=== PATIENT | female | born 1955 | race African-American/Black ===

== ENCOUNTER 2019-05-03 00:32 | Inpatient (IN) | payer MEDICARE ==
[~2019-05-03] VITALS: Ht 170.2 cm; Wt 80.5 kg
[2019-05-03] VITALS (20 sets, daily range): BP systolic 121–156; BP diastolic 66–130; Ht 170.2 cm; Wt 80.5 kg
[2019-05-03] MEDS ORDERED: BUMEX2 MG PO (00:37)
[2019-05-03] MEDS ORDERED: ALBUTEROL SULF8.5 GM INH (00:37)
[2019-05-03] MEDS ORDERED: CARDURA4 MG PO (00:38)
[2019-05-03] MEDS ORDERED: PHOSLO667 MG PO (00:38)
[2019-05-03] MEDS ORDERED: ROCALTROL0.25 MCG PO (00:38)
[2019-05-03] MEDS ORDERED: NORVASC10 MG (00:39)
[2019-05-03] MEDS ORDERED: BAYER CHEWABLE81 MG PO (00:39)
[2019-05-03] MEDS ORDERED: FERROUS SULFAT325 MG PO (00:39)
[2019-05-03] MEDS ORDERED: HYDRALAZINE HCL25 MG PO (00:39)
[2019-05-03 01:26] LABS: BASOPHILS 0.2 % (0-2); EOSINOPHILS 0.3 % (0-7); HEMATOCRIT 29.5 % (36.0-48.0); HEMOGLOBIN 9.9 g/dL (12-16); IMMATURE GRANULOCYTES 0.4 % (0-5); LYMPHOCYTES 10.9 % (15-50); MCH 30.4 pg (26.0-34.0); MCHC 33.6 g/dL (31.0-37.0); MCV 90.5 fL (80.0-100.0); MEAN PLATELET VOLUME 11.3 fL (7.4-10.4); MONOCYTES 9.4 % (2-11); NEUTROPHILS 78.8 % (40-80); PLATELET COUNT 200 10x3/uL (130-400); RBC 3.26 10x6/uL (4.00-5.40); RDW 12.3 % (11.5-14.5); WBC 11.3 10x3/uL (4.8-10.8)
[2019-05-03 01:54] LABS: APTT 32.7 SECONDS (22.8-39.4); INR 1.09 (0.85-1.17); PROTIME 13.6 SECONDS (11.6-15.0)
[2019-05-03 02:10] LABS: ALBUMIN 2.8 g/dL (3.4-5.0); ALKALINE PHOSPHATASE 105 U/L (46-116); ALT (SGPT) 7 U/L (10-68); BILIRUBIN - TOTAL 0.39 mg/dL (0.2-1.3); CALC OSMOLALITY 308 mosm/kg (275-300); CARBON DIOXIDE 23.3 mmol/L (21.0-32.0); CHLORIDE - SERUM 93 mmol/L (98-107); CKMB 1.5 U/L (0.0-3.6); CREATINE KINASE 66 UL (21-215); CREATININE - SERUM 14.4 mg/dL (0.6-1.3); GLUCOSE 162 mg/dL (74-106); PROTEIN - SERUM 8.5 g/dL (6.4-8.2); SODIUM 132 mmol/L (136-145); UREA NITROGEN 125 mg/dL (7-18); eGFR NON AFRICAN AMERICAN 3 mL/min (90-120)
[2019-05-03 02:16] LABS: APPEARANCE HAZY (CLEAR); BILIRUBIN NEGATIVE (NEGATIVE); COLOR YELLOW (YELLOW); EPITHELIAL CELLS RARE /hpf (0-5); GLUCOSE NEGATIVE (NEGATIVE); KETONE NEGATIVE (NEGATIVE); NITRITE NEGATIVE (NEGATIVE); PROTEIN 2+ mg/dL (NEGATIVE); SPECIFIC GRAVITY 1.015 (1.005-1.020); UROBILINOGEN NORMAL (NORMAL)
[2019-05-03 02:17] LABS: BACTERIA MANY /hpf (NONE SEEN)
[2019-05-03 02:19] LABS: CALCIUM 12.4 mg/dL (8.5-10.1); POTASSIUM - SERUM 6.7 mmol/L (3.5-5.1); TROPONIN-I < 0.017 ng/mL (0.000-0.060)
--- NOTE | 2019-05-03 02:56 | NUR ---
PT ARRIVED PER EMS WITH C/O OF URINARY RETENTION, HEMATURIA, NOT EATING, OR DRINKING, INCREASED GENERALIZED WEAKNESS, FAMILY AT BEDSIDE.
--- NOTE | 2019-05-03 02:58 | NUR ---
PATIENT TO CT VIA STRETCHER PER SYNCHRO ASSEMBLER.
--- NOTE | 2019-05-03 03:15 | NUR ---
ROCEPHIN INFUSION COMPLETE AT THIS TIME.
--- NOTE | 2019-05-03 04:15 | NUR ---
PT REC'D TO ROOM 2314 VIA STRETCHER FROM ER, PT TRANSFERRED OVER TO BED, ALL MONITORS ESTABLISHED, PT APPEARS WEAK, STATES " THEY MADE ME COME TO THE HOSPITAL BECAUSE I WAS JUST LAYING IN THE BED ALL THE TIME", LEFT HAND PIV WITH ROCPEHIN INFUSING, PT TREY, ORIENTED X 4, EXTRA BLANKET AND THERMOSTAT ADJUSTED FOR PT COMFORT, PT DENIES FURTHER NEEDS, CALL LIGHT IN REACH.
--- NOTE | 2019-05-03 04:45 | NUR ---
AT BS WITH HOME MEDICATIONS, MEDICATIONS VERIFIED, AND UPDATE PROVIDED.
--- NOTE | 2019-05-03 05:15 | NUR ---
SON AT BS, UPDATE GIVEN AND QUESTIONS ANSWERED.
--- NOTE | 2019-05-03 06:15 | NUR ---
PT RESTING IN BED, EYES CLOSED, RESP EVEN AND UNLABORED, VSS, WILL MONITOR CLOSELY FOR CHANGES, CALL LIGHT IN REACH.
--- NOTE | 2019-05-03 07:30 | NUR ---
REC'ED RERPORT FROM OUT GOING RN - PT RESTING SUPUINE IN BED - RESP REG RATE AND RHYTHM - CPOC
--- NOTE | 2019-05-03 08:00 | NUR ---
ASSESSMENST COMPLETEE - PT SLIGHTLY CONFUSED - B/P WITHN 1128/73 (89) - CPOC
--- NOTE | 2019-05-03 09:18 | NUR ---
SPOKE TO SON, DOCBASIM TO SPEAK TO SON - PASSWORD ESTABLISHED (CRYSTAL BEE) PUT ON FACE SHEET - CPOC
--- NOTE | 2019-05-03 09:30 | NUR ---
MEDICAITONS GIVEN - PT RESTING WITH EYES CLOSED - CONTINUES TO BE SLIGHTLY CONFUSED - CPOC
--- NOTE | 2019-05-03 10:13 | NUR ---
DR. GALAN AT BEDSIDE - REVIEWED LABS - POSSIBLE TRIALYSIS FOR DIALYSIS - AWAITING STAT BMP -
[2019-05-03 11:42] LABS: INR 1.11 (0.85-1.17); PROTIME 13.8 SECONDS (11.6-15.0)
[2019-05-03 12:35] LABS: ALBUMIN 2.5 g/dL (3.4-5.0); ANION GAP 17.3 mmol/L (8-16); BILIRUBIN - TOTAL 0.34 mg/dL (0.2-1.3); CARBON DIOXIDE 26.8 mmol/L (21.0-32.0); CREATININE - SERUM 13.8 mg/dL (0.6-1.3); PROTEIN - SERUM 6.9 g/dL (6.4-8.2)
[2019-05-03 12:36] LABS: POTASSIUM - SERUM 6.1 mmol/L (3.5-5.1)
--- NOTE | 2019-05-03 12:40 | NUR ---
PAGED DR. GALAN - R/T POTASSIUM LAB AT 6.1 (DOWN FROM 6.7) DISCUSSED PLAN OF CARE - ORDER TO CONSULT DR. HUBBARD FOR TRIALYSIS PLACEMENT TODAY - AND - [facility] FOR 18:[address] GALAN WITH LAB RESUTLS. CPOC
--- NOTE | 2019-05-03 12:50 | NUR ---
PAGED DR. MUHAMMAD - INFORMED OF ABOVE CONSULT - INSTRUCTED TO OBTAIN ULTRASOUND FROM ER WITH ALL SUPPLIES - COMPLETED AWAITING
--- NOTE | 2019-05-03 13:20 | NUR ---
SPOKE TO PATIENT WITH SON (MADELINE) AT BEDSIDE TO DISCUSS TRIALYSIS PROCEDURE - PATIENT STATED SHE DOES NOT WANT TO BE IN PAIN, EDUCATED PATIENT R/T HOW PROCEDURE IS DONE. SON SAID HE WOULD NOTIFY HIS FATTHER TO BE PRESENT FOR PROCEDURE.
--- NOTE | 2019-05-03 13:32 | NUR ---
CALLED SPOUSE TO DISCUSS TRIALYSIS PROCEDURE - SPOUSE AGEED TO PLAN OF CARE - 2ND RN WITNESS AVILABLE FOR CONFIRMATION. sPOUSE IS DRIVING IN TO BE PRESENT IF POSSIBLE (IN WAITING ROOM.) CPOC
--- NOTE | 2019-05-03 14:00 | NUR ---
SPOUSE AT BEDSIDE - ANSWERED ALL QUESITONS TO FAMILY'S SATISFACTION - AWATING MD FOR PROCEDURE
--- NOTE | 2019-05-03 14:25 | NUR ---
GAVE MEDICATION SEE MAR - CPOC
--- NOTE | 2019-05-03 15:30 | NUR ---
DR. HUBBARD CALLED TO STATE HE WILL 'BE HERE NEXT.' PER COST ACCOUNTANT
--- NOTE | 2019-05-03 16:07 | NUR ---
CALLED PHARMACY TO ASK FOR LIDOCAINE TO BE AVAIABLE FOR UPCOMING PROCEDURE - CPOC
--- NOTE | 2019-05-03 16:08 | NUR ---
VISITORS AT BEDSIDE - DINNER TRAY GIVEN TO PATIENT - CPOC
--- NOTE | 2019-05-03 16:35 | NUR ---
TIME OUT CALLED PRE PROCEDURE - PATIENT TOLERATED PROCEDURE WELL. - COVERED WITH CENTRAL LINE DRESSING, BLUE CAP, ANS SWAB CAP PLACED - STAT-X-RAY ORDERED FOR CLEARANCE - CPOC
--- NOTE | 2019-05-03 17:15 | NUR ---
DR. GALAN CALLED TO DISCUSS PLAN OF CARE - INFORMED OF PATIENT C/O OF LOWER ABD PAIN- ODERS RECIEVED FOR PROTONIX, LABS (AMALAYSE, LIPASE), REPEAT MIRALAX TO TREAT CONSTIPATION. SPOUSE AND FAMILY AT BEDSIDE VISITING - WITH PATIENT - CPOC
--- NOTE | 2019-05-03 17:30 | NUR ---
COMPOSITE ENGINEER AND X-RAY TECH AT BEDSIDE FOR TREATMENT - AWAITING RESULTS
[2019-05-03 18:15] LABS: ANION GAP 18.5 mmol/L (8-16); CARBON DIOXIDE 25.2 mmol/L (21.0-32.0); CREATININE - SERUM 13.6 mg/dL (0.6-1.3); POTASSIUM - SERUM 5.7 mmol/L (3.5-5.1)
--- NOTE | 2019-05-03 18:18 | NUR ---
CALLED RUBBER GOODS REPAIRER TO ASK FOR PROTONIX IV PUSH TO BE PULLED FROM [facility]
--- NOTE | 2019-05-03 18:24 | NUR ---
PAGED DR GALAN FOR LAB RESUTLS POTASSIUM: 5.7, BUN: 124, CREAT: 13.6, AMYLASE: 43, LIPASE: 445 AWAITING CALL BACK
--- NOTE | 2019-05-03 18:40 | NUR ---
DR GALAN - CHANGED NS TO 125ML/HR - READ RADIOLOGY REPORT - APPROVED TO USE IJ NURSES VADIM - WILL MEET WITH FAMILY AT 11:00 TODAY TO REVIEW PLAN OF CARE
--- NOTE | 2019-05-03 21:00 | NUR ---
1900 PT ASSESSMENT COMPLETED AT THIS TIME. PT RESTING WITH EYES CLOSED UPON ARRIVAL INTO ROOM. RESP EVEN NON LABORED. PT C/O ABD AND BACK PAIN. PT STATES THAT IT DOES FEEL BETTER THAN EARLIER. NO OTHER COMPLAINTS VOICED. WILL CON TO MONITOR FOR CHANGES
--- NOTE | 2019-05-03 21:02 | NUR ---
PT GIVEN MEDICINE AT THIS TIME, NO CHANGES NOTED. WILL MONITOR FOR CHANGES IN PATIENT COND.
--- NOTE | 2019-05-03 23:24 | NUR ---
PTM REASSESSMENT COMPLETED AT THIS TIME. NO CHANGES NOTED, WILL CONT. TO MONITOR
[2019-05-04] VITALS (24 sets, daily range): BP systolic 101–165; BP diastolic 57–113
--- NOTE | 2019-05-04 03:21 | NUR ---
0100 PT RESTING WITH EYES CLOSED RESP EVEN NON LABORED. NO DISTRESS NOTED. WILL CONTINUE TO MONITOR. 0300 PT REASSESSMENT COMPLETED ATY THIS TIME TIME, NO CHANGES SEEN, WILL CONT. TO MONITOR
--- NOTE | 2019-05-04 04:58 | NUR ---
PT ADVISED THAT HER SIDE AND ABD WAS HURTING MORE, PT RATED IT A 10/10 ON THE PAIN SCALE
[2019-05-04 05:19] LABS: BASOPHILS 0.1 % (0-2); EOSINOPHILS 3.3 % (0-7); HEMATOCRIT 24.2 % (36.0-48.0); IMMATURE GRANULOCYTES 0.4 % (0-5); MCH 30.2 pg (26.0-34.0); MCHC 33.1 g/dL (31.0-37.0); MCV 91.3 fL (80.0-100.0); MEAN PLATELET VOLUME 10.7 fL (7.4-10.4); MONOCYTES 16.5 % (2-11); NEUTROPHILS 65.7 % (40-80); PLATELET COUNT 176 10x3/uL (130-400); RBC 2.65 10x6/uL (4.00-5.40); RDW 12.4 % (11.5-14.5)
[2019-05-04 05:20] LABS: WBC 7.7 10x3/uL (4.8-10.8)
[2019-05-04 05:34] LABS: ALBUMIN 2.3 g/dL (3.4-5.0); ANION GAP 17.5 mmol/L (8-16); BILIRUBIN - TOTAL 0.3 mg/dL (0.2-1.3); CALCIUM 10.2 mg/dL (8.5-10.1); CARBON DIOXIDE 25.1 mmol/L (21.0-32.0); CREATININE - SERUM 12.7 mg/dL (0.6-1.3); POTASSIUM - SERUM 5.6 mmol/L (3.5-5.1)
--- NOTE | 2019-05-04 06:04 | NUR ---
[address] GALAN CONCERNING PATIENTS INCREASED PAIN. NEW ORDERS GIVEN
--- NOTE | 2019-05-04 07:00 | NUR ---
SHIFT ASSESSMENT COMPLETED. PT CARE ASSUMED. MONITORS ON AND WORKING, VITALS STABLE, PT AWAKE AND ALERT, COMPLAINING OF LEFT HIP PAIN. ICE PACK PLACED ON PTS LEFT HIP. CALL LIGHT WITHIN REACH, SEE FLOW SHEET FOR FURTHER DETIALS. WILL CONTINUE TO OBSERVE.
--- NOTE | 2019-05-04 09:00 | NUR ---
FAMILY AT BEDSIDE, UPDATE PROVIDED, MONITORS ON AND WORKING, VITALS STABLE, PRINT SUPPORT SPECIALIST NOTIFIED OF VAGINAL BLEEDING AND ABD PAIN- DR GALAN AT BEDSIDE, DISCUSSING PLAN OF CARE WITH PT AND FAMILY.
--- NOTE | 2019-05-04 09:40 | NUR ---
SPOKE WITH DR CHUNG REGARDING CONSULT, HE STATED HE WOULD BE BY TO SEE PT IN A LITTLE BIT.
--- NOTE | 2019-05-04 11:00 | NUR ---
NO CHANGES, SEE FLOW SHEET FOR FURTHER DETAILS, CALL LIGHT WITHIN REACH, WILL CONTINUE TO OBSERVE.
--- NOTE | 2019-05-04 13:00 | NUR ---
CRAB BUTCHER AT BEDSIDE TALKING WITH PT AND FAMILY. MONITORS ON AND WORKING, VITALS STABLE, WILL CONTINUE TO OBSERVE.
--- NOTE | 2019-05-04 15:00 | NUR ---
AT BEDSIDE. PT RESTING, HD NURSE AT BEDSIDE, MONITORS ON AND WORKING, VITALS STABLE. PT TOLERATING WELL. CALL LIGHT WITHIN REACH, WILL CONTINUE TO OBSERVE.
--- NOTE | 2019-05-04 15:49 | OP ---
PATIENT NAME: GABBY MAYO MEDICAL RECORD: [id number] :51 LOCATION:[facility] D.2314 ADMISSION DATE:05/03/19 SURGEON: HOMA HUBBARD MD DATE OF OPERATION: 05/03/2019 PREOPERATIVE DIAGNOSIS: Acute renal failure requiring hemodialysis. POSTOPERATIVE DIAGNOSIS: Acute renal failure requiring hemodialysis. PROCEDURE: Insertion of right internal jugular Trialysis catheter (non-tunneled, non-cuffed hemodialysis catheter). SURGEON: Homa Hubbard MD BISQUE FINISHER: None. BLOOD LOSS: Minimal. ANESTHESIA: Local. COMPLICATIONS: None. The risks, possible complications and alternatives to the procedure were explained to the patient. She elects to proceed. The entire procedure was performed in the presence of a female nurse. OPERATIVE COURSE: The patient was positioned in the Trendelenburg position. The right neck was sterilely prepped and draped. A local anesthetic was used to infiltrate the skin and subcutaneous tissues at the base of right neck. Right internal jugular vein was percutaneously accessed in an antegrade fashion. A guidewire passed easily. A small skin deidra was accomplished. A vessel dilator was used to dilate a subcutaneous tract. A short Trialysis catheter was inserted to the hub. It was sutured in place times 3. All lumens flushed easily and aspirated dark, nonpulsatile blood. A stat portable chest x-ray is pending. TRANSINT:[id number] Voice Confirmation ID: [id number] DOCUMENT ID: [id number] HOMA HUBBARD MD at 1549 CC: VLADIMIR GALAN MD [id number] DICTATION DATE: 05/03/191716 STRUCTURAL STEEL DETAILER: 05/03/19 2217 ADM IN [place] [id number] [place] [id number]
--- NOTE | 2019-05-04 16:30 | NUR ---
PT TWITCHING MORE, CHANGE IN STATUS, DIE REPAIRER TRIMMER DIES NOTIFIED, STAT BMP AND CT OF HEAD ORDERED.
[2019-05-04 17:40] LABS: ANION GAP 15.7 mmol/L (8-16); CALCIUM 9.3 mg/dL (8.5-10.1)
[2019-05-04 17:46] LABS: CREATININE - SERUM 6.4 mg/dL (0.6-1.3); POTASSIUM - SERUM 4.7 mmol/L (3.5-5.1)
--- NOTE | 2019-05-04 18:00 | NUR ---
CT OF HEAD COMPLETED. PT TAKEN TO ER AFTER CT TO RULE OUT STROKE, PT BACK IN ICU, MONITORS ON AND WORKING, VITALS STABLE, SPOKE WITH LABORATORY CLERK AGAIN, FAMILY AT BEDSIDE, CONTINUED TO BE UPDATED AND REMAINS AT BEDSIDE AT THIS TIME.
--- NOTE | 2019-05-04 20:16 | NUR ---
1900 PT ASSESSMENT COMPLETED AT THIS TIME, PT AWAKE AND ALERT TALKING WITH FAMILY. PT STATES THAT HER ABD IS STILL HURTING. NO OTHER COMPLAINTS AT THIS TIME. PT ADVISED THAT THE NURSE WOULD CHECK THE ORDERS FOR MEDICINE FOR PAIN. 1951 PT GIVEN BUPERNEX IV FOR PAIN CONTROL 2010 FAMILY ADVISED THAT THE PATIENT WAS FEELING HOT, AND NAUSEATED. PT WAS GIVEN AN EMESIS BAG IN CASE OF VOMITING. NO ORDERS NOTED FOR NAUSEA MEDICINE, ON-CALL WAS PAGED.
--- NOTE | 2019-05-04 20:55 | NUR ---
2024 DR GALAN CALLED BACK WITH NEW ORDERS, WAS UPDATED ON PATIENTS COND.
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
[2019-05-05] VITALS (29 sets, daily range): BP systolic 113–181; BP diastolic 63–128
--- NOTE | 2019-05-05 02:04 | NUR ---
2200 PT RESTING WITH EYES CLOSED, PT WILL AROUSE TO NAME. RESP EVEN NON LABORED AT THSI TIME, FAMILY AT THE BEDSIDE. 2300 PT REASSESSMENT COMPLETED AT THIS TIME. PT AWAKES TO NAME AND DENIES ANY COMPLAINTS WHEN ASKED. PT THE GOES BACK TO SLEEP. RESP EVEN NON LABORED AT THIS TIME, WILL CONT. TO MON. 0100 PT AWOKE TO NAME AND WHEN ASKED IF SHE WAS DOING OK THE PATIENT STATES THAT SHE DOING FINE. PT DENIES PAIN OR DISCOMFORT AT THIS TIME. RESP EVEN NON LABORED, WILL CONT. TO MONITOR
--- NOTE | 2019-05-05 04:15 | NUR ---
0300 PT AWAKE AT THIS TIME, REASSESSMENT COMPLETED, NO DISTRESS NOTED 0340 PT WAS GIVEN HCG BATH AT THIS TIME. AND COMPLETE LINEN CHANGED
--- NOTE | 2019-05-05 05:14 | NUR ---
PT RESTING WITH EYES CLOSED AT THSI TIME, RESP EVEN NON LABORED. WILL CONT TO MONITOR
[2019-05-05 05:17] LABS: BASOPHILS 0.2 % (0-2); EOSINOPHILS 1.9 % (0-7); HEMATOCRIT 24.9 % (36.0-48.0); HEMOGLOBIN 8.2 g/dL (12-16); IMMATURE GRANULOCYTES 0.5 % (0-5); LYMPHOCYTES 13.4 % (15-50); MCH 30.4 pg (26.0-34.0); MCHC 32.9 g/dL (31.0-37.0); MCV 92.2 fL (80.0-100.0); MEAN PLATELET VOLUME 10.1 fL (7.4-10.4); MONOCYTES 13.8 % (2-11); NEUTROPHILS 70.2 % (40-80); PLATELET COUNT 178 10x3/uL (130-400); RDW 12.3 % (11.5-14.5); WBC 8.1 10x3/uL (4.8-10.8)
[2019-05-05 05:45] LABS: ANION GAP 17.2 mmol/L (8-16); CARBON DIOXIDE 23.7 mmol/L (21.0-32.0); CREATININE - SERUM 6.9 mg/dL (0.6-1.3); PHOSPHOROUS 5.4 mg/dL (2.5-4.9); POTASSIUM - SERUM 4.9 mmol/L (3.5-5.1)
--- NOTE | 2019-05-05 07:09 | NUR ---
PT TAKEN TO SURGERY BY OR CREW
--- NOTE | 2019-05-05 07:15 | NUR ---
REPORT RECEIVED. PT CURRENTLY IN OR. PT HAS RIGHT IJ TRIALYSIS CATH. SHE HAS A MAY. ON ROOM AIR. WILL REASSESS WHEN PT RETURNS FROM SURGERY.
--- NOTE | 2019-05-05 09:32 | NUR ---
DR ALBERT IN WITH PT AT THIS TIME. ORDERED SOME LAB WORK. WILL CONTINUE TO MONITOR.
--- NOTE | 2019-05-05 09:35 | NUR ---
CALLED DR HUBBARD ABOUT PT HAVING ABDOMINAL PAIN AND DR GALAN WANTING HIM TO TAKE A LOOK. HE STATED THAT DR DONAHUE LOOKED AT HER WHEN HE WAS IN THE UNIT AND THAT HE WOULD PUT A NOTE IN. 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 WILL FOLLOW UP WITH DR SHEIKH.
--- NOTE | 2019-05-05 11:30 | NUR ---
PT RESTING QUIETLY. LETHARGIC. MUMBLING RESPONSES TO QUESTIONS. ABD TENDER. BOWEL SOUNDS HYPOACTIVE. HELPED PT REPOSITION IN BED. VSS. WILL CONTINUE TO MONITOR.
--- NOTE | 2019-05-05 12:15 | NUR ---
Nutrition follow-up: Clear liquid low K diet Dialysis started Labs reviewed Wt: 178# Pt not meeting estimated energy needs at this time Will need to consider nutrition support if diet unable to advance within 24-48 hours RDN following.
--- NOTE | 2019-05-05 12:15 | NUR ---
DR CHUNG TO UNIT. WANTED TO ROUND ON PT AND SPEAK WITH FAMILY. FAMILY NOT IN UNIT AND NOT IN WAITING ROOM. DR CHUNG SAID HE WAS GOING TO DO ANOTHER PROCEDURE THEN HE WOULD COME BACK TO THE UNIT TO TRY TO CATCH THE FAMILY.
--- NOTE | 2019-05-05 14:38 | NUR ---
SEVERAL FAMILY MEMBERS HAVE GOTTEN HERE ASKING WHEN DR CHUNG WOULD BE BACK AROUND. ONE SON SAT AT NURSE'S STATION WATCHING TO MAKE SURE I MADE PHONE CALLS TO FIND OUT. SPOKE WITH NURSE IN THE ROOM (WHERE DR CHUGN IS CURRENTLY) AND HE SAID THAT IT WOULD BE WITHIN THE NEXT HOUR THAT HE WOULD BE UP HERE TO SPEAK WITH THE FAMILY. RELAYED MESSAGE TO FAMILY. WILL CONTINUE TO MONITOR.
--- NOTE | 2019-05-05 15:15 | NUR ---
DR CHUNG IN WITH PT AND FAMILY. UPDATED. NO NEW ORDERS AT THIS TIME. STATED IF PT BLEEDS EXCESSIVELY FROM VAGINA TO CALL HIM.
--- NOTE | 2019-05-05 17:03 | NUR ---
UPDATED PT'S SON AND DAUGHTER IN LAW. VERBALIZED UNDERSTANDING. OTHER FAMILY MEMBERS IN WITH PT AT THIS TIME. DENIES PAIN WHILE LAYING STILL. WILL CONTINUE TO MONITOR.
[2019-05-06] VITALS (22 sets, daily range): BP systolic 105–177; BP diastolic 67–118
[2019-05-06 06:21] LABS: ANION GAP 15.1 mmol/L (8-16); CALCIUM 8.9 mg/dL (8.5-10.1); CARBON DIOXIDE 24.4 mmol/L (21.0-32.0); CREATININE - SERUM 7.2 mg/dL (0.6-1.3); PHOSPHOROUS 4.9 mg/dL (2.5-4.9); POTASSIUM - SERUM 4.5 mmol/L (3.5-5.1)
[2019-05-06 06:49] LABS: BASOPHILS 0.1 % (0-2); EOSINOPHILS 4.1 % (0-7); HEMOGLOBIN 7.9 g/dL (12-16); IMMATURE GRANULOCYTES 0.8 % (0-5); LYMPHOCYTES 15.8 % (15-50); MCHC 32.9 g/dL (31.0-37.0); MCV 91.3 fL (80.0-100.0); MONOCYTES 17.5 % (2-11); NEUTROPHILS 61.7 % (40-80); PLATELET COUNT 192 10x3/uL (130-400); RBC 2.63 10x6/uL (4.00-5.40); RDW 12.3 % (11.5-14.5); WBC 7.5 10x3/uL (4.8-10.8)
--- NOTE | 2019-05-06 07:15 | NUR ---
REPORT RECEIVED. PT HAS A RIGHT IJ TRIALYSIS WITH NS INFUSING AT 30ML/HR. PT HAS A MAY. ON HER RIGHT SIDE. HEAD TO TOE ASSESSMENT COMPLETED. VSS. WILL CONTINUE TO MONITOR.
--- NOTE | 2019-05-06 07:32 | NUR ---
1900 PT ASSESSMENT COMPLETED AT THIS TIME, PT TAKING WITH FAMILY AT BEDSIDE, NO DISTRESS NOTED. 2100 PT GIVEN MEDS AT THIS TIME. PT LUIS. WELL, NO DISTRESS NOTED. 2300 PT REASSESSMENT COMPLETED AT THIS TIME, NO CHANGES NOTED. 0100 PT RESTING IN BED WITH FAMILY AT BEDSIDE, NO DISTRESS NOTED, WILL CONT TO MONITOR 0300 PT REASSESSMENT COMPLETED AT THIE TIME, NO DISTRESS NOTED. 0500 I&O COLLECTED AT THIS TIME, BLOOD DRAWN AND SENT TO THE LAB, NO CHANGES NOTED IN PATIENTS COND.
--- NOTE | 2019-05-06 09:30 | NUR ---
AM MEDS WERE GIVEN. MINERAL OIL GIVEN. PT HAD A HARD TIME FOLLOWING COMMANDS. WAS LETHARGIC. GAVE TRAMADOL FOR PAIN. WILL CONTINUE TO MONITOR.
--- NOTE | 2019-05-06 10:00 | NUR ---
DR CHUNG CALLED TO CHECK IN ON PT AND LET US KNOW THAT PT IS KNOWN TO THE [facility], THAT HE HAS SOME RECORDS THEY SENT OVER AND WILL BRING A COPY FOR US TO PUT IN HER CHART. STATES THAT HE IS STILL WORKING ON GETTING HER IN WITH THE OBGYN ONCOLOGIST AT [facility]. STATES THAT DOES NOT YET HAVE FINAL RESULTS ON PATHOLOGY BUT EXPECTS TO RECEIVE BY THIS AFTERNOON. WILL UPDATE FAMILY.
--- NOTE | 2019-05-06 11:19 | NUR ---
PT REPOSITIONED TO LEFT SIDE. SEEMED TO GIVE HER SOME RELIEF. VSS. WILL CONTINUE TO MONITIOR.
[2019-05-06 12:09] LABS: ALPHA FETOPROTEIN -(TUMOR MRK) <0.7 ng/mL (0.0-8.3); CA 19-9 326 U/mL (0-35); CA125 29.7 U/mL (0.0-38.1); CEA 3.7 ng/mL (0.0-4.7)
[2019-05-06 12:09] LABS: HEPATITIS C ANTIBODY 0.1 S/CO RAT (0.0-0.9)
--- NOTE | 2019-05-06 13:00 | NUR ---
PT COMPLAINS OF NAUSEA AFTER TRYING TO EAT SOME CHICKEN NOODLE SOUP. EMESIS BAG GIVEN TO PT. WILL MONITOR.
[2019-05-06 13:09] LABS: CA 27-29 13.4 U/mL (0.0-38.6)
--- NOTE | 2019-05-06 13:45 | NUR ---
PT STATES NO LONGER NAUSEATED. UPDATED FAMILY ON PLAN OF CARE THIS AFTERNOON IN TRYING TO GET PT TO HAVE A BOWEL MOVEMENT. VERBALIZED UNDERSTANDING.
--- NOTE | 2019-05-06 15:00 | NUR ---
PT RESTING QUIETLY. FAMILY AT BEDSIDE. VSS.
--- NOTE | 2019-05-06 17:13 | NUR ---
FAMILY REPORTS "SEIZURE" ACTIVITY. ASSESSED PT. LETHARGIC AND MUMBLING. WHAT I HAVE SEEN EARLIER TODAY AND YESTERDAY. PT HAD BIG INCONTINENT BOWEL MOVEMENT. GREEN AND LIQUID. PT CLEANED UP. MOANED IN PAIN. DR CHUNG THEN TO FLOOR ROUNDING ON PT. LET HIM KNOW THAT FAMILY THOUGHT SHE HAD SEIZURE ACTIVITY. SPOKE WITH FAMILY REGARDING TRANSFER TO [facility]. ALSO DISCUSSED PAIN MEDICATION. STATED HE WOULD WRITE FOR DILAUDID AND TO ONLY GIVE IF OKAYED BY DR GALAN. WILL CONTINUE TO MONITOR NEURO STATUS.
--- NOTE | 2019-05-06 18:27 | MORECARE ---
CASE MANAGEMENT DISCHARGE SUMMARY PATIENT: GABBY MAYO UNIT: [id number] ADM DATE: 05/03/19 AGE: 63 : 53 SEX: F ROOM/BED: D.[facility] AUTHOR: MARY PIZARRO PHYSICIAN: REFERRING PHYSICIAN: VLADIMIR GALAN MD DATE OF SERVICE: 05/06/19 Discharge Plan Patient Name: GABBY MAYO Facility: [facility]:[place] : 1955 Planned Disposition: Anticipated Discharge Date: Discharge Date: Expected LOS: Initial Reviewer: [email or web address] Initial Review Date: 05/06/2019 Generated: 05/06/19 7:27 pm Patient Name: GABBY MAYO Page [phone] at 1827 All edits/amendments must be made on the electronic document DICTATION DATE: 05/06/191825 SCADA TECHNICIAN: MORRIS 05/06/191825 RPT#: [id number] DC DATE: STATUS: ADM IN [facility] [address] [place] [address] END OF REPORT
--- NOTE | 2019-05-06 18:34 | MORECARE ---
CASE MANAGEMENT DISCHARGE SUMMARY PATIENT: GABBY MAYO UNIT: [id number] ADM DATE: 05/03/19 AGE: 63 : 53 SEX: F ROOM/BED: D.2314 AUTHOR: MARY PIZARRO PHYSICIAN: REFERRING PHYSICIAN: VLADIMIR GALAN MD DATE OF SERVICE: 05/06/19 Discharge Plan Patient Name: GABBY MAYO Facility: [facility]:[place] : 1955 Planned Disposition: Anticipated Discharge Date: Discharge Date: Expected LOS: Initial Reviewer: [email or web address] Initial Review Date: 05/06/2019 Generated: 05/06/19 7:34 pm DCPIA - Discharge Planning Initial Assessment Updated by [email or web address]: Lizeth Maguire on 05/06/19 6:29 pm * Is the patient Alert and Oriented? Yes * How many steps to enter\exit or inside your home? * PCP DR. BROWN IN * Pharmacy [facility] * Preadmission Environment Home with Family * ADLs Partial Dependent * Partial ADLs (Assistance needed) Ambulation Bathing Dressing Eating Medication Management Toileting Transfers * Other Equipment WALKER, CANE W/C * List name and contact numbers for known caregivers / representatives who currently or will assist patient after discharge: BERYL MAYO - [facility]- [phone] * Verbal permission to speak to the caregivers and representatives has been obtained from the patient. Yes * Community resources currently utilized None * Additional services required to return to the preadmission environment? No * Can the patient safely return to the preadmission environment? Yes * Has this patient been hospitalized within the prior 30 days at any hospital? No Last DP export: 05/06/19 5:27 pm Patient Name: GABBY MAYO Page [phone] at 1834 All edits/amendments must be made on the electronic document DICTATION DATE: 05/06/191832 WATCH TRAIN ASSEMBLER: MORRIS 05/06/191832 RPT#: [id number] DC DATE: STATUS: ADM IN [place] [address] [place] [address] END OF REPORT
--- NOTE | 2019-05-06 18:41 | MORECARE ---
CASE MANAGEMENT DISCHARGE SUMMARY PATIENT: GABBY MAYO UNIT: [id number] ADM DATE: 05/03/19 AGE: 63 : 53 SEX: F ROOM/BED: D.2314 AUTHOR: MOIRA,DOC PHYSICIAN: REFERRING PHYSICIAN: VLADIMIR CARDENAS MD DATE OF SERVICE: 05/06/19 Discharge Plan Patient Name: GABBY MAYO Facility: [facility]:[place] : 1955 Planned Disposition: Anticipated Discharge Date: Discharge Date: Expected LOS: Initial Reviewer: [email or web address] Initial Review Date: 05/06/2019 Generated: 05/06/19 7:40 pm Comments DCP- Discharge Planning Updated by [email or web address]: Lizeth Maguire on 05/06/19 5:[address] Patient Name: GABBY MAYO Admission Status: ER Accout number: [id number] Admission Date: 05-03-2019 : 1955 Admission Diagnosis:ACUTE KIDNEY FAILURE, UNSPECIFIED Attending: Vladimir Cardenas Current LOS: 3 Anticipated DC Date: Planned Disposition: Primary Insurance: MEDICARE A & B Discharge Planning Comments: CM met with patient and spouse (BERYL) at bedside after explaining CM role and obtaining verbal consent. Patient lives at home with her and plans to return there upon discharge. Patient's speech garbled un able to understand. CM discussed availability / needs of home health and medical equipment. Patient has had to start hemodialysis since admission. CM will contact [facility] for possible placement needs at discharge. Uncertain of discharge disposition at this time pending results of testing. Spouse states that the patient has been in bed for the last several weeks d/t back pain. Patient may need rehab prior to discharge. CM will continue to follow and assist as needed with discharge planning / needs. [employer] Consultant: Lizeth Maguire DCPIA - Discharge Planning Initial Assessment Updated by [email or web address]: Lizeth Maguire on 05/06/19 6:29 pm * Is the patient Alert and Oriented? Yes * How many steps to enter\exit or inside your home? * PCP DR. BROWN IN * Pharmacy [facility] [place] * Preadmission Environment Home with Family * ADLs Partial Dependent * Partial ADLs (Assistance needed) Ambulation Bathing Dressing Eating Medication Management Toileting Transfers * Other Equipment WALKER, CANE W/C * List name and contact numbers for known caregivers / representatives who currently or will assist patient after discharge: BERYL MAYO - [facility]- [phone] * Verbal permission to speak to the caregivers and representatives has been obtained from the patient. Yes * Community resources currently utilized None * Additional services required to return to the preadmission environment? No * Can the patient safely return to the preadmission environment? Yes * Has this patient been hospitalized within the prior 30 days at any hospital? No Last DP export: 05/06/19 5:34 pm Patient Name: GABBY MAYO Page [phone] at 1841 All edits/amendments must be made on the electronic document DICTATION DATE: 05/06/191839 MANAGER PACKAGING: MORRIS 05/06/191839 RPT#: [id number] DC DATE: STATUS: ADM IN [facility] [address] [place] [address] END OF REPORT
--- NOTE | 2019-05-06 18:48 | NUR ---
PT INCONTINENT BOWEL. CLEANED UP AND REPOSITIONED.
--- NOTE | 2019-05-06 19:00 | NUR ---
BEDSIDE REPORT AND SHIFT ASSESSMENT COMPLETE. SON, JEREMIAH, AT BEDSIDE. EMERGENCY VEHICLE OPERATIONS INSTRUCTOR AT [employer]. R IJ TRIALYSIS CATHETER, WNL. L FOREARM PIV SALINE LOCKED. O2 SAT 99 ON RA. WILL CONTINUE TO MONITOR.
--- NOTE | 2019-05-06 21:00 | NUR ---
DIALYSIS NURSE AT BEDSIDE, O2 SAT 85 ON RA. PUT PT ON 2L NC, O2 SAT 98. WILL CONTINUE TO MONITOR.
--- NOTE | 2019-05-06 22:25 | NUR ---
, RONALDT, AT BEDSIDE. REQUESTED TO CHECK PT'S BLOOD SUGAR. FSBS 90. STATES PT CHECKS HER BLOOD SUGAR EVERY MORNING AND NIGHT BUT DOES NOT TAKE INSULIN. I TOLD HIM I WOULD INFORM ONCOMING RN DURING SHIFT REPORT IN AM. WILL CONTINUE TO MONITOR.
--- NOTE | 2019-05-06 23:00 | NUR ---
REASSESSMENT COMPLETE. PT'S SON, MADELINE, INFORMED ME THAT HE IS IN THE WAITING ROOM AND TO NOTIFY HIM IF THERE ARE ANY CHANGES. PT RESTING QUIETLY. WILL CONTINUE TO MONITOR.
[2019-05-07] VITALS (16 sets, daily range): BP systolic 126–175; BP diastolic 56–99
--- NOTE | 2019-05-07 01:00 | NUR ---
CHG BATH, MAY CARE, LINEN CHANGE, AND CVL DRESSING CHANGE COMPLETE. SON (MADELINE) CALLED, UPDATE GIVEN.
--- NOTE | 2019-05-07 03:00 | NUR ---
REASSESSMENT COMPLETE. VSS, NO SIGNS OF ACUTE DISTRESS.
--- NOTE | 2019-05-07 05:00 | NUR ---
FAMILY AT BEDSIDE, UPDATE GIVEN. PT SLEEPING, WILL CONTINUE TO MONITOR.
[2019-05-07 05:09] LABS: BASOPHILS 0.2 % (0-2); EOSINOPHILS 3.2 % (0-7); HEMATOCRIT 23.8 % (36.0-48.0); IMMATURE GRANULOCYTES 0.5 % (0-5); LYMPHOCYTES 7.9 % (15-50); MCH 30.4 pg (26.0-34.0); MCHC 33.6 g/dL (31.0-37.0); MCV 90.5 fL (80.0-100.0); MEAN PLATELET VOLUME 10.6 fL (7.4-10.4); MONOCYTES 13.2 % (2-11); PLATELET COUNT 183 10x3/uL (130-400); RBC 2.63 10x6/uL (4.00-5.40); RDW 12.4 % (11.5-14.5)
[2019-05-07 05:44] LABS: WBC 9.8 10x3/uL (4.8-10.8)
--- NOTE | 2019-05-07 06:53 | NUR ---
DR GALAN AT BEDSIDE, UPDATE GIVEN.
--- NOTE | 2019-05-07 07:00 | NUR ---
RECEIVED REPORT FROM NIGHT NURSE. PATIENT STABLE IN BED. DISORIENTED TO TIME, PLACE, AND SITUATION. MAY DRAINING YELLOW URINE. R IJ TRIALYSIS C NS AT 30. ABDOMEN IS FIRM. VSS. HR IRREGULAR. WILL OBTAIN EKG TO R/O A-FIB. CALL STARKEY IN REACH. WILL CONTINUE TO MONITOR
[2019-05-07 08:08] LABS: ANION GAP 13.9 mmol/L (8-16); CALCIUM 8.4 mg/dL (8.5-10.1); CARBON DIOXIDE 26.6 mmol/L (21.0-32.0); PHOSPHOROUS 4.2 mg/dL (2.5-4.9); POTASSIUM - SERUM 4.5 mmol/L (3.5-5.1)
[2019-05-07 08:09] LABS: CREATININE - SERUM 4.5 mg/dL (0.6-1.3)
--- NOTE | 2019-05-07 09:11 | NUR ---
DR. ALBERT AND NEPHROLOGY MS SQL DEVELOPER ROUNDED ON PATIENT AND SPOKE WITH FAMILY UTERINE CARCINOMA AND DESIRE FOR TRANSFER TO [facility] FOR CANCER AND NEUROLOGICAL EVALUATION.
--- NOTE | 2019-05-07 12:16 | NUR ---
NUTRITION F/U CHART REVIEWED. PT REMAINS ON CLEAR LIQUID DIET. WILL CONTINUE TO MONITOR AND PROVIDE ADVANCED DIET WHEN MEDICALLY FEASIBLE. RD FOLLOWING
--- NOTE | 2019-05-07 12:44 | MORECARE ---
CASE MANAGEMENT DISCHARGE SUMMARY PATIENT: GABBY MAYO UNIT: [id number] ADM DATE: 05/03/19 AGE: 63 : 53 SEX: F ROOM/BED: D.2314 AUTHOR: MOIRA,DOC PHYSICIAN: REFERRING PHYSICIAN: VLADIMIR CARDENAS MD DATE OF SERVICE: 05/07/19 Discharge Plan Patient Name: GABBY MAYO Facility: [facility]:[place] : 1955 Planned Disposition: Anticipated Discharge Date: Discharge Date: Expected LOS: Initial Reviewer: [email or web address] Initial Review Date: 05/06/2019 Generated: 05/07/19 1:44 pm Comments DCP- Discharge Planning Updated by [id number]: Lizeth Maguire on 05/06/19 5:[address] Patient Name: GABBY MAYO Admission Status: ER Accout number: [id number] Admission Date: 05-03-2019 : 1955 Admission Diagnosis:ACUTE KIDNEY FAILURE, UNSPECIFIED Attending: Vladimir Cardenas Current LOS: 3 Anticipated DC Date: Planned Disposition: Primary Insurance: MEDICARE A & B Discharge Planning Comments: CM met with patient and spouse (EBRYL) at bedside after explaining CM role and obtaining verbal consent. Patient lives at home with her and plans to return there upon discharge. Patient's speech garbled un able to understand. CM discussed availability / needs of home health and medical equipment. Patient has had to start hemodialysis since admission. CM will contact [facility] [place] for possible placement needs at discharge. Uncertain of discharge disposition at this time pending results of testing. Spouse states that the patient has been in bed for the last several weeks d/t back pain. Patient may need rehab prior to discharge. CM will continue to follow and assist as needed with discharge planning / needs. Dimethylaniline Sulfator Operator: Lizeth Maguire DCPIA - Discharge Planning Initial Assessment Updated by [id number]: Lizeth Maguire on 05/06/19 6:29 pm * Is the patient Alert and Oriented? Yes * How many steps to enter\exit or inside your home? * PCP DR. BROWN IN * Pharmacy [facility] [place] * Preadmission Environment Home with Family * ADLs Partial Dependent * Partial ADLs (Assistance needed) Ambulation Bathing Dressing Eating Medication Management Toileting Transfers * Other Equipment WALKER, CANE W/C * List name and contact numbers for known caregivers / representatives who currently or will assist patient after discharge: BERYL MAYO - [facility]- [phone] * Verbal permission to speak to the caregivers and representatives has been obtained from the patient. Yes * Community resources currently utilized None * Additional services required to return to the preadmission environment? No * Can the patient safely return to the preadmission environment? Yes * Has this patient been hospitalized within the prior 30 days at any hospital? No External Providers External Provider: [facility] Next Contact Date: Service Request Date: Service Type: Resolution: Reviewer: Comments: Last DP export: 05/06/19 5:41 pm Patient Name: GABBY MAYO Page 43119 at 1244 All edits/amendments must be made on the electronic document DICTATION DATE: 05/07/19 124 FORK TRUCK OPERATOR: MORRIS 05/07/19 1244 RPT#: [id number] DC DATE: STATUS: ADM IN [facility] [address] [place] [address] END OF REPORT
--- NOTE | 2019-05-07 13:00 | MORECARE ---
CASE MANAGEMENT DISCHARGE SUMMARY PATIENT: GABBY MAYO UNIT: [id number] ADM DATE: 05/03/19 AGE: 63 : 53 SEX: F ROOM/BED: D.2314 AUTHOR: MARY PIZARRO PHYSICIAN: REFERRING PHYSICIAN: VLADIMIR CARDENAS MD DATE OF SERVICE: 05/07/19 Discharge Plan Patient Name: GABBY MAYO Facility: [facility]:[place] : 1955 Planned Disposition: Anticipated Discharge Date: Discharge Date: Expected LOS: Initial Reviewer: [email or web address] Initial Review Date: 05/06/2019 Generated: 05/07/19 2:00 pm Comments DCP- Discharge Planning Updated by [email or web address]: Lizeth Maguire on 05/07/19 11:[address] CM contacted transfer center for transfer to [facility] for higher level of care and neurology evaluation. CM faxed facesheet to transfer center. No other clinicals requested at this time. CM will continue to follow and assist as needed with discharge planning / needs. DCP- Discharge Planning Updated by [id number]: Lzieth Maguire on 05/06/19 5:[address] Patient Name: GABBY MAYO Admission Status: ER Accout number: [id number] Admission Date: 05-03-2019 : 1955 Admission Diagnosis:ACUTE KIDNEY FAILURE, UNSPECIFIED Attending: Vladimir Cardenas Current LOS: 3 Anticipated DC Date: Planned Disposition: Primary Insurance: MEDICARE A & B Discharge Planning Comments: CM met with patient and spouse (LINDSEYNEST) at bedside after explaining CM role and obtaining verbal consent. Patient lives at home with her and plans to return there upon discharge. Patient's speech garbled un able to understand. CM discussed availability / needs of home health and medical equipment. Patient has had to start hemodialysis since admission. CM will contact [facility] [place] for possible placement needs at discharge. Uncertain of discharge disposition at this time pending results of testing. Spouse states that the patient has been in bed for the last several weeks d/t back pain. Patient may need rehab prior to discharge. CM will continue to follow and assist as needed with discharge planning / needs. Digital Media Planner: Lizeth Maguire DCPIA - Discharge Planning Initial Assessment Updated by [id number]: Lizeth Maguire on 05/06/19 6:29 pm * Is the patient Alert and Oriented? Yes * How many steps to enter\exit or inside your home? * PCP DR. BROWN IN * Pharmacy [facility] * Preadmission Environment Home with Family * ADLs Partial Dependent * Partial ADLs (Assistance needed) Ambulation Bathing Dressing Eating Medication Management Toileting Transfers * Other Equipment WALKER, CANE W/C * List name and contact numbers for known caregivers / representatives who currently or will assist patient after discharge: BERYL MAYO - [facility]- [phone] * Verbal permission to speak to the caregivers and representatives has been obtained from the patient. Yes * Community resources currently utilized None * Additional services required to return to the preadmission environment? No * Can the patient safely return to the preadmission environment? Yes * Has this patient been hospitalized within the prior 30 days at any hospital? No Last DP export: 05/07/19 11:44 am Patient Name: GABBY MAYO Page 46721 at 1300 All edits/amendments must be made on the electronic document DICTATION DATE: 05/07/19 1259 GREENS OR GROUNDS SUPERINTENDENT: MORRIS 05/07/19 125 RPT#: [id number] ND DATE: STATUS: ADM IN [facility] [address] [place] [address] END OF REPORT
--- NOTE | 2019-05-07 13:30 | NUR ---
PRN PAIN MED GIVEN. VSS. FAMILY IN ROOM.
--- NOTE | 2019-05-07 14:42 | NUR ---
FAMILY HAS DECIDED SINCE PATIENT HAS STAGE 4 CANCER, THEY DO NOT WANT TO SEND PATIENT TO [facility] AND WOULD LIKE TO SEND PATIENT TO HOSPICE AT [facility]. NOTIFIED DR. ALBERT, NO ISSUES THERE. NOTIFIED BOX STORAGE WORKER ANÍBAL.
--- NOTE | 2019-05-07 15:19 | NUR ---
NOTIFIED ATTENDING PHYSICIAN, DR. FRITZ OF FAMILY'S WISHES TO CANCEL UAMS TRANSFER AND PERSUE HOSPICE AT [facility]. STATED HE IS OKAY WITH THIS DISCUSSION AND OKAY TO PUT IN HOSPICE CONSULT ORDER.
--- NOTE | 2019-05-07 15:38 | MORECARE ---
CASE MANAGEMENT DISCHARGE SUMMARY PATIENT: GABBY MAYO UNIT: [id number] ADM DATE: 05/03/19 AGE: 63 : 53 SEX: F ROOM/BED: D.2314 AUTHOR: MARY PIZARRO PHYSICIAN: REFERRING PHYSICIAN: VLADIMIR CARDENAS MD DATE OF SERVICE: 05/07/19 Discharge Plan Patient Name: GABBY MAYO Facility: [facility]:[place] : 1955 Planned Disposition: Anticipated Discharge Date: Discharge Date: Expected LOS: Initial Reviewer: [email or web address] Initial Review Date: 05/06/2019 Generated: 05/07/19 4:38 pm Comments DCP- Discharge Planning Updated by [id number]: Lizeth Maguire on 05/07/19 11:[address] CM contacted transfer center for transfer to [facility] for higher level of care and neurology evaluation. CM faxed facesheet to transfer center. No other clinicals requested at this time. CM will continue to follow and assist as needed with discharge planning / needs. DCP- Discharge Planning Updated by [id number]: Lizeth Maguire on 05/06/19 5:[address] Patient Name: GABBY MAYO Admission Status: ER Accout number: [id number] Admission Date: 05-03-2019 : 1955 Admission Diagnosis:ACUTE KIDNEY FAILURE, UNSPECIFIED Attending: Vladimir Cardenas Current LOS: 3 Anticipated DC Date: Planned Disposition: Primary Insurance: MEDICARE A & B Discharge Planning Comments: CM met with patient and spouse (LINDSEYNEST) at bedside after explaining CM role and obtaining verbal consent. Patient lives at home with her and plans to return there upon discharge. Patient's speech garbled un able to understand. CM discussed availability / needs of home health and medical equipment. Patient has had to start hemodialysis since admission. CM will contact [facility] [place] for possible placement needs at discharge. Uncertain of discharge disposition at this time pending results of testing. Spouse states that the patient has been in bed for the last several weeks d/t back pain. Patient may need rehab prior to discharge. CM will continue to follow and assist as needed with discharge planning / needs. Twister Frame Tender: Lizeth Maguire DCPIA - Discharge Planning Initial Assessment Updated by [id number]: Lizeth Maguire on 05/06/19 6:29 pm * Is the patient Alert and Oriented? Yes * How many steps to enter\exit or inside your home? * PCP DR. BROWN IN * Pharmacy [facility] * Preadmission Environment Home with Family * ADLs Partial Dependent * Partial ADLs (Assistance needed) Ambulation Bathing Dressing Eating Medication Management Toileting Transfers * Other Equipment WALKER, CANE W/C * List name and contact numbers for known caregivers / representatives who currently or will assist patient after discharge: BERYL MAYO - [facility]- [phone] * Verbal permission to speak to the caregivers and representatives has been obtained from the patient. Yes * Community resources currently utilized None * Additional services required to return to the preadmission environment? No * Can the patient safely return to the preadmission environment? Yes * Has this patient been hospitalized within the prior 30 days at any hospital? No External Providers External Provider: [facility] *(provides inpt [facility] Next Contact Date: Service Request Date: Service Type: Resolution: Reviewer: Comments: Last DP export: 05/07/19 12:00 pm Patient Name: GABBY MAYO Page 23837 at 1538 All edits/amendments must be made on the electronic document DICTATION DATE: 05/07/191537 TOUR GUIDE: MORRIS 05/07/191537 RPT#: [id number] DC DATE: STATUS: ADM IN [facility] [address] [place] [address] END OF REPORT
--- NOTE | 2019-05-07 16:32 | NUR ---
HOSPICE NURSE IS HERE TO EVALATE.
--- NOTE | 2019-05-07 18:00 | NUR ---
SPOKE TO HOSPICE NURSE ON PHONE. STATED EVERYTHING IS CLEAR FOR TRANSFER AND JUST TO WAIT FOR HOSPICE NURSE TO CALL FOR REPORT. UPDATED FAMILY IN ROOM. PATIENT IS STABLE AND AWAKE WITH NO COMPLAINTS. WILL CONTINUE TO MONITOR
--- NOTE | 2019-05-07 19:00 | NUR ---
BEDSIDE REPORT COMPLETE. VSS, NO SIGNS OF ACUTE DISTRESS. O2 SAT 98 ON 2L NC. R IJ TRIALYSIS CATHETER SALINE LOCKED, DRESSING CDI. L FOREARM PIV SALINE LOCKED, DRESSING CDI. PT SLEEPING, FAMILY AT BEDSIDE. OTHER FAMILY IN FAMILY ROOM. MAY WITH VETO, CONCENTRATED UOP. LUNG SOUNDS CTA. BS ACTIVE X4, LAST BM THIS AM. FAMILY DENIES ANY NEEDS AT THIS TIME. WILL TRANSFER PT TO HOSPICE.
--- NOTE | 2019-05-07 20:25 | NUR ---
PT TO RESHMA TO [facility] ROOM 547. REPORT CALLED TO JESICA HANNA AT [phone]. TRANSFER CENTER CALLED.
[2019-05-08 00:34] VITALS: BP 135/59
--- NOTE | 2019-05-08 00:34 | NUR ---
EMS HERE TO GET PATIENT FOR TRANSFER TO [facility]. FAMILY AT BEDSIDE.
--- NOTE | 2019-05-08 00:42 | NUR ---
[facility] AT BEDSIDE TO TRANSPORT PATIENT. PT TO D/C TO [facility].
--- NOTE | 2019-05-09 18:52 | MORECARE ---
CASE MANAGEMENT DISCHARGE SUMMARY PATIENT: GABBY MAYO UNIT: [id number] ADM DATE: 05/03/19 AGE: 63 : 53 SEX: F ROOM/BED: D.2314 AUTHOR: MARY PIZARRO PHYSICIAN: REFERRING PHYSICIAN: VLADIMIR CARDENAS MD DATE OF SERVICE: 05/09/19 Discharge Plan Patient Name: GABBY MAYO Facility: [facility]:[place] : 1955 Planned Disposition: Anticipated Discharge Date: Discharge Date: 05/08/2019 Expected LOS: Initial Reviewer: [email or web address] Initial Review Date: 05/06/2019 Generated: 05/09/19 7:51 pm Comments DCP- Discharge Planning Updated by [id number]: Lizeth Maguire on 05/09/19 5:[address] CM contacted transfer center for transfer to [facility] for higher level of care and neurology evaluation. CM faxed facesheet to transfer center. No other clinicals requested at this time. CM will continue to follow and assist as needed with discharge planning / needs. Appended by Lizeth Maguire on 05/09/2019 18:50 CDT: LATE ENTRY - FAMILY SPOKE WITH MD AND MADE DECISION THAT THEY WOULD PREFER [facility] THAN TRANSFER TO [facility]. FAMILY REQUESTED [facility] INPATIENT ANGELO SIGNED [facility] CM NOTIFIED AND RECORDS COPIED FOR EVALUATING NURSE. NURSING TO CALL REPORT AND EMS TO BE CALLED FOR TRANSPORT. DCP- Discharge Planning Updated by [email or web address]: Lizeth Maguire on 05/06/19 5:[address] Patient Name: GABBY MAYO Admission Status: ER Accout number: [id number] Admission Date: 05-03-2019 : 1955 Admission Diagnosis:ACUTE KIDNEY FAILURE, UNSPECIFIED Attending: Vladimir Cardenas Current LOS: 3 Anticipated DC Date: Planned Disposition: Primary Insurance: MEDICARE A & B Discharge Planning Comments: CM met with patient and spouse (BERYL) at bedside after explaining CM role and obtaining verbal consent. Patient lives at home with her and plans to return there upon discharge. Patient's speech garbled un able to understand. CM discussed availability / needs of home health and medical equipment. Patient has had to start hemodialysis since admission. CM will contact [facility] [place] for possible placement needs at discharge. Uncertain of discharge disposition at this time pending results of testing. Spouse states that the patient has been in bed for the last several weeks d/t back pain. Patient may need rehab prior to discharge. CM will continue to follow and assist as needed with discharge planning / needs. Dietitian Assistant: Lizeth Maguire DCPIA - Discharge Planning Initial Assessment Updated by [id number]: Lizeth Maguire on 05/06/19 6:29 pm * Is the patient Alert and Oriented? Yes * How many steps to enter\exit or inside your home? * PCP DR. BROWN IN * Pharmacy [facility] * Preadmission Environment Home with Family * ADLs Partial Dependent * Partial ADLs (Assistance needed) Ambulation Bathing Dressing Eating Medication Management Toileting Transfers * Other Equipment WALKER, CANE W/C * List name and contact numbers for known caregivers / representatives who currently or will assist patient after discharge: BERYL MAYO - [facility]- [phone] * Verbal permission to speak to the caregivers and representatives has been obtained from the patient. Yes * Community resources currently utilized None * Additional services required to return to the preadmission environment? No * Can the patient safely return to the preadmission environment? Yes * Has this patient been hospitalized within the prior 30 days at any hospital? No Last DP export: 05/07/19 2:38 pm Patient Name: GABBY MAYO Page 89447 at 1852 All edits/amendments must be made on the electronic document DICTATION DATE: 05/09/191850 ADMINISTRATIVE SALES ASSISTANT: MORRIS 05/09/191850 RPT#: [id number] DC DATE:05/08/19 STATUS: DIS IN [place] [id number] [place] [address] END OF REPORT
--- NOTE | 2019-05-09 19:11 | MORECARE ---
CASE MANAGEMENT DISCHARGE SUMMARY PATIENT: GABBY MAYO UNIT: [id number] ADM DATE: 05/03/19 AGE: 63 : 53 SEX: F ROOM/BED: D.2314 AUTHOR: MARY PIZARRO PHYSICIAN: REFERRING PHYSICIAN: VLADIMIR CARDENAS MD DATE OF SERVICE: 05/09/19 Discharge Plan Patient Name: GABBY MAYO Facility: [facility]:[place] : 1955 Planned Disposition: Hospice Home Anticipated Discharge Date: Discharge Date: 05/08/2019 Expected LOS: Initial Reviewer: [id number] Initial Review Date: 05/06/2019 Generated: 05/09/19 8:11 pm Comments DCP- Discharge Planning Updated by [email or web address]: Lizeth Maguire on 05/09/19 5:[address] CM contacted transfer center for transfer to [facility] for higher level of care and neurology evaluation. CM faxed facesheet to transfer center. No other clinicals requested at this time. CM will continue to follow and assist as needed with discharge planning / needs. Appended by Lizeth Maguire on 05/09/2019 18:50 CDT: LATE ENTRY - FAMILY SPOKE WITH MD AND MADE DECISION THAT THEY WOULD PREFER [facility] THAN TRANSFER TO [facility]. FAMILY REQUESTED [facility] INPATIENT ANGELO SIGNED [facility] CM NOTIFIED AND RECORDS COPIED FOR EVALUATING NURSE. NURSING TO CALL REPORT AND EMS TO BE CALLED FOR TRANSPORT. DCP- Discharge Planning Updated by [id number]: Lizeth Maguire on 05/06/19 5:[address] Patient Name: GABBY MAYO Admission Status: ER Accout number: [id number] Admission Date: 05-03-2019 : 1955 Admission Diagnosis:ACUTE KIDNEY FAILURE, UNSPECIFIED Attending: Vladimir Cardenas Current LOS: 3 Anticipated DC Date: Planned Disposition: Primary Insurance: MEDICARE A & B Discharge Planning Comments: CM met with patient and spouse (RONALDT) at bedside after explaining CM role and obtaining verbal consent. Patient lives at home with her and plans to return there upon discharge. Patient's speech garbled un able to understand. CM discussed availability / needs of home health and medical equipment. Patient has had to start hemodialysis since admission. CM will contact [facility] [place] for possible placement needs at discharge. Uncertain of discharge disposition at this time pending results of testing. Spouse states that the patient has been in bed for the last several weeks d/t back pain. Patient may need rehab prior to discharge. CM will continue to follow and assist as needed with discharge planning / needs. Director Occupational: Lizeth Maguire DCPIA - Discharge Planning Initial Assessment Updated by [email or web address]: Lizeth Maguire on 05/06/19 6:29 pm * Is the patient Alert and Oriented? Yes * How many steps to enter\exit or inside your home? * PCP DR. BROWN IN * Pharmacy [facility] [place] * Preadmission Environment Home with Family * ADLs Partial Dependent * Partial ADLs (Assistance needed) Ambulation Bathing Dressing Eating Medication Management Toileting Transfers * Other Equipment WALKER, CANE W/C * List name and contact numbers for known caregivers / representatives who currently or will assist patient after discharge: BERYL MAYO - [facility]- [phone] * Verbal permission to speak to the caregivers and representatives has been obtained from the patient. Yes * Community resources currently utilized None * Additional services required to return to the preadmission environment? No * Can the patient safely return to the preadmission environment? Yes * Has this patient been hospitalized within the prior 30 days at any hospital? No Coverage Notice Reviewer: [id number] Cheyanne Maguire Notice Issued Date-Time: 05/07/2019 15:00 Notice Type: Patient Choice Letter Notice Delivered To: Family Member Relationship to Patient: Spouse Music Historian Name: BERYL MAYO Delivery Method: HAND - Hand Delivered Libby Days: Prior Verbal Notification: Recipient Understood Notice: Yes Recipient Signature: Yes Med Rec Note Co-signed by Attending: Coverage Notice Comment: Reviewer: [email or web address] Cheyanne Maguire Notice Issued Date-Time: 05/07/2019 15:00 Notice Type: IM Discharge Notice Notice Delivered To: Family Member Relationship to Patient: Spouse Music Historian Name: BRANDY MANTILLANEERU Delivery Method: HAND - Hand Delivered Libby Days: Prior Verbal Notification: Recipient Understood Notice: Yes Recipient Signature: Yes Med Rec Note Co-signed by Attending: Coverage Notice Comment: Last DP export: 05/09/19 5:52 pm Patient Name: GABBY MAYO Page 58575 at 191 All edits/amendments must be made on the electronic document DICTATION DATE: 05/09/191910 TELECOMMUNICATIONS MANAGER: MORRIS 05/09/191910 RPT#: [id number] DC DATE:05/08/19 STATUS: DIS IN [facility] [address] [place] [address] END OF REPORT
--- NOTE | 2019-05-09 19:25 | MORECARE ---
CASE MANAGEMENT DISCHARGE SUMMARY PATIENT: GABBY MAYO UNIT: [id number] ADM DATE: 05/03/19 AGE: 63 : [birth year] SEX: F ROOM/BED: D.2314 AUTHOR: MARY PIZARRO PHYSICIAN: REFERRING PHYSICIAN: VLADIMIR CARDENAS MD DATE OF SERVICE: 05/09/19 Discharge Plan Patient Name: GABBY MAYO Facility: [facility]:[place] : 1955 Planned Disposition: Hospice Home Anticipated Discharge Date: Discharge Date: 05/08/2019 Expected LOS: Initial Reviewer: [email or web address] Initial Review Date: 05/06/2019 Generated: 05/09/19 8:25 pm Comments DCP- Discharge Planning Updated by [email or web address]: Lizeth Maguire on 05/09/19 5:[address] CM contacted transfer center for transfer to [facility] for higher level of care and neurology evaluation. CM faxed facesheet to transfer center. No other clinicals requested at this time. CM will continue to follow and assist as needed with discharge planning / needs. Appended by Lizeth Maguire on 05/09/2019 18:50 CDT: LATE ENTRY - FAMILY SPOKE WITH MD AND MADE DECISION THAT THEY WOULD PREFER [facility] THAN TRANSFER TO [facility]. FAMILY REQUESTED [facility] INPATIENT ANGELO SIGNED [facility] CM NOTIFIED AND RECORDS COPIED FOR EVALUATING NURSE. NURSING TO CALL REPORT AND EMS TO BE CALLED FOR TRANSPORT. DCP- Discharge Planning Updated by [id number]: Lizeth Maguire on 05/06/19 5:[address] Patient Name: GABBY MAYO Admission Status: ER Accout number: [id number] Admission Date: 05-03-2019 : 1955 Admission Diagnosis:ACUTE KIDNEY FAILURE, UNSPECIFIED Attending: Vladimir Cardenas Current LOS: 3 Anticipated DC Date: Planned Disposition: Primary Insurance: MEDICARE A & B Discharge Planning Comments: CM met with patient and spouse (RONALDT) at bedside after explaining CM role and obtaining verbal consent. Patient lives at home with her and plans to return there upon discharge. Patient's speech garbled un able to understand. CM discussed availability / needs of home health and medical equipment. Patient has had to start hemodialysis since admission. CM will contact [facility] for possible placement needs at discharge. Uncertain of discharge disposition at this time pending results of testing. Spouse states that the patient has been in bed for the last several weeks d/t back pain. Patient may need rehab prior to discharge. CM will continue to follow and assist as needed with discharge planning / needs. Care Coordinator: Lizeth Maguire DCPIA - Discharge Planning Initial Assessment Updated by [email or web address]: Lizeth Maguire on 05/06/19 6:29 pm * Is the patient Alert and Oriented? Yes * How many steps to enter\exit or inside your home? * PCP DR. BROWN IN * Pharmacy [facility] [place] * Preadmission Environment Home with Family * ADLs Partial Dependent * Partial ADLs (Assistance needed) Ambulation Bathing Dressing Eating Medication Management Toileting Transfers * Other Equipment WALKER, CANE W/C * List name and contact numbers for known caregivers / representatives who currently or will assist patient after discharge: BERYL MAYO - SPOUSE- [phone] * Verbal permission to speak to the caregivers and representatives has been obtained from the patient. Yes * Community resources currently utilized None * Additional services required to return to the preadmission environment? No * Can the patient safely return to the preadmission environment? Yes * Has this patient been hospitalized within the prior 30 days at any hospital? No Coverage Notice Reviewer: [email or web address] Cheyanne Maguire Notice Issued Date-Time: 05/07/2019 15:00 Notice Type: Patient Choice Letter Notice Delivered To: Family Member Relationship to Patient: Spouse School Childcare Attendant Name: BERYL MAYO Delivery Method: HAND - Hand Delivered Libby Days: Prior Verbal Notification: Recipient Understood Notice: Yes Recipient Signature: Yes Med Rec Note Co-signed by Attending: Coverage Notice Comment: Reviewer: [email or web address] Cheyanne Maguire Notice Issued Date-Time: 05/07/2019 15:00 Notice Type: IM Discharge Notice Notice Delivered To: Family Member Relationship to Patient: Spouse School Childcare Attendant Name: BRANDY MANTILLANEERU Delivery Method: HAND - Hand Delivered Libby Days: Prior Verbal Notification: Recipient Understood Notice: Yes Recipient Signature: Yes Med Rec Note Co-signed by Attending: Coverage Notice Comment: Last DP export: 05/09/19 6:11 pm Patient Name: BRANDON MAYOIE Page [id number] at 1925 All edits/amendments must be made on the electronic document DICTATION DATE: 05/09/191924 MORTGAGE CLOSING CLERK: MORRIS 05/09/191924 RPT#: [id number] DC DATE:05/08/19 STATUS: DIS IN [facility] [address] [place] [address] END OF REPORT
--- NOTE | 2019-06-11 06:43 | OP ---
PATIENT NAME: GABBY MAYO MEDICAL RECORD: [id number] :[birth year] LOCATION[facility] D.2314 ADMISSION DATE:05/03/19 SURGEON: JOMAR CHUNG MD DATE OF OPERATION: 05/06/2019 PREOPERATIVE DIAGNOSES: 1. Abdominal pain. 2. Postmenopausal bleeding. 3. Retained intrauterine device. POSTOPERATIVE DIAGNOSES: 1. Abdominal pain. 2. Postmenopausal bleeding. 3. Retained intrauterine device. PROCEDURES: 1. IUD removal. 2. Cervical biopsy. 3. Dilation and curettage. PRIMARY SURGEON: Dr. Jomar Chung/Dr. Garrison ANESTHESIOLOGIST: Dr. Dorsey ANESTHETIC: General. FINDINGS: At the time of exam under anesthesia, the uterus is unremarkable in size or shape. The cervix is irregular. IUD strings are identified at the time of visualization of the cervix. There is cervical inflammation. At the time of D&C, copious amounts of tissues returned. ESTIMATED BLOOD LOSS: Minimal. FLUIDS: 300 cc lactated Ringer's. URINE OUTPUT: Quantity sufficient prior to this procedure. COMPLICATIONS: None. DRAINS: None. INDICATIONS: The patient is a 63-year-old female who was admitted to the ICU for abdominal pain and renal failure. The patient has a longstanding history of postmenopausal bleeding. CT also shows retained IUD. After discussion with family and the patient, she has consented for exam under anesthesia and removal of IUD, endometrial biopsy, and any indicated procedure. DESCRIPTION OF PROCEDURE: After informed consent was assured, the patient was taken to the operating room where anesthetic is obtained and the patient was placed in stirrups. The speculum was introduced into the vagina and the cervix visualized. Inflammation was noted immediately on the cervix and a biopsy was taken of this. IUD strings are present and the Janel loop IUD was removed. Once this has been OPERATIVE REPORT [id number] GABBY MAYO performed, the cervix was dilated and a curettage was performed with return of [id number] tissue. All specimens were sent to pathology. The cervix was visualized after completion of the D&C and hemostasis achieved with cautery, there was minimal bleeding from the uterus at this time. The patient was taken down from the stirrups, awakened, and went to the recovery room in stable condition. TRANSINT:[id number] Voice Confirmation ID: [id number] DOCUMENT ID: [id number] 06/04/2019 Edited for procedure list, dmm. JOMAR CHUNG MD at 0643 CC: [id number] DICTATION DATE: 05/29/191719 SAT INSTRUCTOR: 05/30/19 022 DIS IN 05/08/19 [place] [id number] [place] [id number]
== END 2019-05-08 00:44 | disposition hospice, inpatient (51) | DRG 987 ==
LOC: D.ER 00:32 → D.ICU 02:50
PROVIDERS: Family Medicine; Internal Medicine Hematology & Oncology; ADMIT Internal Medicine Nephrology; ATTEND Internal Medicine Nephrology
PROC: 05HM33Z Insertion of Infusion Device into Right Internal Jugular Vein, Percutaneous Approach (ICD-10-PCS; principal; 2019-05-03)
PROC: 0UDB8ZX Extraction of Endometrium, Via Natural or Artificial Opening Endoscopic, Diagnostic (ICD-10-PCS; 2019-05-06)
PROC: 0UBC7ZX Excision of Cervix, Via Natural or Artificial Opening, Diagnostic (ICD-10-PCS; 2019-05-06)
PROC: 0UPD7HZ Removal of Contraceptive Device from Uterus and Cervix, Via Natural or Artificial Opening (ICD-10-PCS; 2019-05-06)
DX: N17.0 Acute kidney failure with tubular necrosis (principal); R40.2224 Coma scale, best verbal response, incomprehensible words, 24 hours or more after hospital admission; R53.2 Functional quadriplegia; M84.58XA Pathological fracture in neoplastic disease, other specified site, initial encounter for fracture; C79.51 Secondary malignant neoplasm of bone; N39.0 Urinary tract infection, site not specified; C90.00 Multiple myeloma not having achieved remission; C55 Malignant neoplasm of uterus, part unspecified; N18.4 Chronic kidney disease, stage 4 (severe); I10 Essential (primary) hypertension; D64.9 Anemia, unspecified; E87.5 Hyperkalemia; R10.9 Unspecified abdominal pain; E83.52 Hypercalcemia; N95.0 Postmenopausal bleeding; I12.9 Hypertensive chronic kidney disease with stage 1 through stage 4 chronic kidney disease, or unspecified chronic kidney disease; K59.00 Constipation, unspecified; R41.82 Altered mental status, unspecified; R40.2244 Coma scale, best verbal response, confused conversation, 24 hours or more after hospital admission; R40.2354 Coma scale, best motor response, localizes pain, 24 hours or more after hospital admission; R40.2134 Coma scale, eyes open, to sound, 24 hours or more after hospital admission; R40.0 Somnolence; D63.1 Anemia in chronic kidney disease; I44.1 Atrioventricular block, second degree; J44.9 Chronic obstructive pulmonary disease, unspecified; J45.909 Unspecified asthma, uncomplicated; I45.10 Unspecified right bundle-branch block

== ENCOUNTER 2019-05-04 17:45 | Emergency (ER) | payer MEDICARE ==
[~2019-05-04] VITALS: Ht 170.2 cm; Wt 81.8 kg
[2019-05-04 17:45] VITALS: Ht 170.2 cm; Wt 81.8 kg
[~2019-05-04 17:45] MED LIST: ALBUTEROL SULF8.5 GM INH; BAYER CHEWABLE81 MG PO; BUMEX2 MG PO; CARDURA4 MG PO; FERROUS SULFAT325 MG PO; HYDRALAZINE HCL25 MG PO; NORVASC10 MG; PHOSLO667 MG PO; ROCALTROL0.25 MCG PO
[2019-05-04 18:05] VITALS: BP 121/64
== END 2019-05-04 18:05 | disposition other institution (70) ==
LOC: D.ER 17:45
DX: R41.0 Disorientation, unspecified (principal)